=== PATIENT | female | born 1945 ===

== ENCOUNTER 2021-10-12 17:16 | Inpatient (IN) | payer MEDICARE ==
[2021-10-12] MEDS ORDERED: Sodium Chloride 0.9% 1,000 ML ONE (18:12)
[2021-10-12 18:17] LABS: #Basophils 0.1 thou/uL (0.0-0.2); #Lymphocytes 0.2 thou/uL (1.20-3.40); #Monocytes 0.4 thou/uL (0.11-0.59); #Neutrophils 3.5 thou/uL (1.40-6.50); %Eosinophils 0.7 % (0.0-10.0); %Lymphocytes 5.2 % (21.0-51.0); %Monocytes 9.9 % (0.0-10.0); %Neutrophils 82.1 % (42.0-75.0); Hemoglobin 13.6 g/dL (12.0-16.0); Mean Corpuscular HGB CONC 31.6 g/dL (32.0-36.0); Mean Corpuscular Hemoglobin 30.6 pg (27.0-31.0); Mean Corpuscular Volume 96.9 fL (78.0-98.0); Mean Platelet Volume 8.3 fL (7.4-10.4); Platelet Count 243 thou/uL (130-400); RBC Distribution Width 12.4 % (11.5-14.5); Red Blood Cell (RBC) Count 4.46 mill/uL (4.20-5.40); White Blood Cell (WBC) Count 4.3 thou/uL (4.8-10.8)
[2021-10-12 18:35] LABS: ALT (SGPT) 26 U/L (8-55); AST (SGOT) 44 U/L (5-34); Albumin 4.1 g/dL (3.4-4.8); Alkaline Phosphatase 84 U/L (40-110); Anion Gap 18 mmol/L (10-20); BUN (Urea Nitrogen) 31 mg/dL (9.8-20.1); Bilirubin, Total 0.5 mg/dL (0.2-1.2); Calc. Creatinine Clearance 0 mL/min (70-130); Calcium 8.6 mg/dL (7.8-10.44); Carbon Dioxide 20 mmol/L (23-31); Chloride 102 mmol/L (98-107); Globulin 2.4 g/dL (2.4-3.5); Glucose 106 mg/dL (83-110); Lipase 17 U/L (8-78); Magnesium 1.6 mg/dL (1.6-2.6); Potassium 3.3 mmol/L (3.5-5.1); Protein, Total 6.5 g/dL (5.8-8.1); Sodium 137 mmol/L (136-145)
[2021-10-12 19:19] LABS: Bilirubin Negative (Negative); Blood, Urine Trace (Negative); Clarity Clear (Clear); Glucose, Urine (Dipstick) Negative (Negative); Ketone, Urine Negative (Negative); Leukocyte Small (Negative); Nitrite Positive (Negative); Protein, Urine (Dipstick) Negative (Neg-Trace); Specific Gravity, Urine 1.025 (1.005-1.030); Urobilinogen 0.2 mg/dL (Less than 2); pH, Urine 5.5 (5.0-9.0)
[2021-10-12 19:20] LABS: RBC/HPF 0-3 HPF (0-3); Squamous Epithelial 0-3 HPF (0-3)
[2021-10-12 19:21] LABS: Bacteria/HPF 3+ HPF (None Seen)
[2021-10-12] MEDS ORDERED: Cefepime 2 GM VIAL ONE (19:52)
[2021-10-12] MEDS ORDERED: Sodium Chloride 0.9% 100 ML ONE (19:52)
[2021-10-12 21:27] LABS: SARS-CoV-2 NAA Rapid Test DETECTED (NotDetected)
[2021-10-12] MEDS ORDERED: Sodium Chloride 0.9% 1,000 ML IV SCH (21:30)
[2021-10-12] MEDS ORDERED: Acetaminophen 325 MG TAB PO PRN (21:30)
[2021-10-12] MEDS: Acetaminophen 500 MG TAB PO PRN (22:01)
[2021-10-12 22:54] VITALS: BMI 22.7
[2021-10-13] MEDS: Cefepime 2 GM in Sodium Chloride 0.9% 100 ML IVPB SCH ×3 (04:05→23:46)
[2021-10-13] MEDS: cloNIDine 0.1 MG TAB PO PRN (04:20)
[2021-10-13 06:23] LABS: Anion Gap 14 mmol/L (10-20); BUN (Urea Nitrogen) 22 mg/dL (9.8-20.1); Calc. Creatinine Clearance 51 mL/min (70-130); Calcium 7.8 mg/dL (7.8-10.44); Carbon Dioxide 19 mmol/L (23-31); Chloride 108 mmol/L (98-107); Glucose 97 mg/dL (83-110); Potassium 3.3 mmol/L (3.5-5.1); Sodium 138 mmol/L (136-145)
[2021-10-13 06:51] LABS: Hemoglobin 12.2 g/dL (12.0-16.0); Mean Corpuscular HGB CONC 31.5 g/dL (32.0-36.0); Mean Corpuscular Hemoglobin 30.4 pg (27.0-31.0); Mean Corpuscular Volume 96.5 fL (78.0-98.0); Mean Platelet Volume 8.3 fL (7.4-10.4); Platelet Count 204 thou/uL (130-400); RBC Distribution Width 12.5 % (11.5-14.5); White Blood Cell (WBC) Count 2.8 thou/uL (4.8-10.8)
[2021-10-13] MEDS ORDERED: Acetaminophen 650 MG Suppository PR PRN (07:00)
[2021-10-13] MEDS ORDERED: Benzonatate 100 MG CAP PO PRN (07:00)
[2021-10-13] MEDS ORDERED: Calcium Carbonate 500 MG ChewTAB PO PRN (07:59)
[2021-10-13] MEDS ORDERED: Bisacodyl 5 MG TAB PO PRN (07:59)
[2021-10-13] MEDS ORDERED: Ondansetron ODT 4 MG TAB SL PRN (07:59)
[2021-10-13] MEDS ORDERED: Senokot S 8.6-50 MG TAB PO PRN (07:59)
[2021-10-13] MEDS ORDERED: Bisacodyl 10 MG SUPP PR PRN (07:59)
[2021-10-13] MEDS ORDERED: Ondansetron PF 4 MG/2 ML Vial IVP PRN (07:59)
[2021-10-13] MEDS ORDERED: Artificial Tear Sol 15 ML BOT EA EYE PRN (08:01)
[2021-10-13] MEDS ORDERED: Cepastat Lozenges 1 LOZ PO PRN (08:01)
[2021-10-13] MEDS: Ascorbic Acid 500 mg Chewable Tablet PO SCH (08:10)
[2021-10-13] MEDS: Zinc Sulfate 220 MG CAP PO SCH (08:11)
[2021-10-13] MEDS: Cholecalciferol (Vitamin D3) 400 UNITS TAB PO SCH (08:11)
[2021-10-13] MEDS: Acetaminophen 500 MG TAB PO PRN (08:12)
[2021-10-13] MEDS: Albuterol 200 PUFF (6.7GM INHALER) INH PRN ×2 (08:14→17:48)
[2021-10-13] MEDS: Enoxaparin Sodium 40 MG/0.4 ML SYRINGE SC SCH (08:16)
[2021-10-13 08:51] LABS: CRP (Inflammatory) 0.77 mg/dL (= or < 0.5)
[2021-10-13] MEDS ORDERED: Potassium Chloride 20 MEQ TAB PO SCH (09:00)
[2021-10-13] MEDS: Famotidine 20 MG TAB PO SCH ×2 (09:36→21:18)
[2021-10-13] MEDS: Famotidine/PF 20 mg/2ml Vial SLOW IVP SCH ×2 (09:37→21:18)
[2021-10-13] MEDS: Sodium Chloride 0.65% Nasal 44 ML BOT EA NARE PRN ×2 (09:38→17:49)
[2021-10-13 09:46] LABS: Prothrombin Time 13.5 sec (12.0-14.7)
[2021-10-13 09:47] LABS: PTT 33.5 sec (22.9-36.1)
[2021-10-13] MEDS ORDERED: NIRMATRELVIR 150 MG/RITONAVIR 100 MG TABLET PO SCH (10:15)
[2021-10-13] MEDS: Guaifenesin DM 100-10/5 ML UDCUP PO PRN (17:48)
[2021-10-13] MEDS: NIRMATRELVIR 150 MG/RITONAVIR 100 MG TABLET PO SCH (21:19)
[2021-10-14 06:26] LABS: Anion Gap 17 mmol/L (10-20); BUN (Urea Nitrogen) 17 mg/dL (9.8-20.1); Calc. Creatinine Clearance 47 mL/min (70-130); Calcium 8.4 mg/dL (7.8-10.44); Carbon Dioxide 18 mmol/L (23-31); Chloride 105 mmol/L (98-107); Glucose 81 mg/dL (83-110); Potassium 3.6 mmol/L (3.5-5.1); Sodium 136 mmol/L (136-145)
[2021-10-14 07:07] LABS: #Lymphocytes 0.7 thou/uL (1.20-3.40); #Monocytes 0.3 thou/uL (0.11-0.59); %Basophils 1.3 % (0.0-1.0); %Eosinophils 6.1 % (0.0-10.0); %Lymphocytes 22.5 % (21.0-51.0); %Monocytes 9.8 % (0.0-10.0); %Neutrophils 66.3 % (42.0-75.0); Hemoglobin 12.4 g/dL (12.0-16.0); Mean Corpuscular HGB CONC 31.4 g/dL (32.0-36.0); Mean Corpuscular Hemoglobin 30.1 pg (27.0-31.0); Mean Corpuscular Volume 95.9 fL (78.0-98.0); Mean Platelet Volume 8.5 fL (7.4-10.4); Platelet Count 188 thou/uL (130-400); RBC Distribution Width 12.3 % (11.5-14.5); Red Blood Cell (RBC) Count 4.12 mill/uL (4.20-5.40); White Blood Cell (WBC) Count 3.1 thou/uL (4.8-10.8)
[2021-10-14] MEDS: Enoxaparin Sodium 40 MG/0.4 ML SYRINGE SC SCH (08:03)
[2021-10-14] MEDS: NIRMATRELVIR 150 MG/RITONAVIR 100 MG TABLET PO SCH ×2 (08:06→21:36)
[2021-10-14] MEDS: Ascorbic Acid 500 mg Chewable Tablet PO SCH (08:07)
[2021-10-14] MEDS: Zinc Sulfate 220 MG CAP PO SCH (08:07)
[2021-10-14] MEDS: Famotidine/PF 20 mg/2ml Vial SLOW IVP SCH ×2 (08:08→21:37)
[2021-10-14] MEDS: Famotidine 20 MG TAB PO SCH ×2 (08:08→21:36)
[2021-10-14] MEDS: Cholecalciferol (Vitamin D3) 400 UNITS TAB PO SCH (08:08)
[2021-10-14] MEDS: Guaifenesin DM 100-10/5 ML UDCUP PO PRN (12:01)
[2021-10-14] MEDS: Cefepime 2 GM in Sodium Chloride 0.9% 100 ML IVPB SCH ×2 (12:02→23:37)
[2021-10-14] MEDS: cloNIDine 0.1 MG TAB PO PRN (21:36)
[2021-10-14] MEDS ORDERED: Loperamide HCl 2 MG CAP PO PRN ×2 (21:49→21:50)
[2021-10-15] MEDS: Enoxaparin Sodium 40 MG/0.4 ML SYRINGE SC SCH (08:15)
[2021-10-15] MEDS: Ascorbic Acid 500 mg Chewable Tablet PO SCH (08:16)
[2021-10-15] MEDS: Famotidine 20 MG TAB PO SCH ×2 (08:16→21:05)
[2021-10-15] MEDS: Lisinopril 10 MG TAB PO SCH (08:17)
[2021-10-15] MEDS: Cholecalciferol (Vitamin D3) 400 UNITS TAB PO SCH (08:17)
[2021-10-15] MEDS: Zinc Sulfate 220 MG CAP PO SCH (08:18)
[2021-10-15] MEDS: NIRMATRELVIR 150 MG/RITONAVIR 100 MG TABLET PO SCH ×2 (08:18→21:06)
[2021-10-15] MEDS: Famotidine/PF 20 mg/2ml Vial SLOW IVP SCH ×2 (08:18→21:06)
[2021-10-15] MEDS: Cefepime 2 GM in Sodium Chloride 0.9% 100 ML IVPB SCH (12:08)
[2021-10-15] MEDS: Nitrofurantoin Monohyd/M-Cryst 100 MG CAP PO SCH (21:05)
[2021-10-16 06:22] LABS: #Lymphocytes 1.2 thou/uL (1.20-3.40); #Monocytes 0.3 thou/uL (0.11-0.59); #Neutrophils 1.7 thou/uL (1.40-6.50); %Eosinophils 0.9 % (0.0-10.0); %Lymphocytes 36.1 % (21.0-51.0); %Monocytes 10.2 % (0.0-10.0); %Neutrophils 51.8 % (42.0-75.0); Hemoglobin 13.6 g/dL (12.0-16.0); Mean Corpuscular HGB CONC 32.1 g/dL (32.0-36.0); Mean Corpuscular Hemoglobin 30.5 pg (27.0-31.0); Mean Platelet Volume 8.9 fL (7.4-10.4); Platelet Count 194 thou/uL (130-400); RBC Distribution Width 12.6 % (11.5-14.5); Red Blood Cell (RBC) Count 4.47 mill/uL (4.20-5.40); White Blood Cell (WBC) Count 3.3 thou/uL (4.8-10.8)
[2021-10-16 06:31] LABS: Anion Gap 17 mmol/L (10-20); BUN (Urea Nitrogen) 25 mg/dL (9.8-20.1); Calc. Creatinine Clearance 34 mL/min (70-130); Calcium 8.4 mg/dL (7.8-10.44); Carbon Dioxide 24 mmol/L (23-31); Chloride 101 mmol/L (98-107); Glucose 79 mg/dL (83-110); Potassium 3.7 mmol/L (3.5-5.1); Sodium 138 mmol/L (136-145)
[2021-10-16] MEDS ORDERED: Famotidine 20 MG TAB PO SCH (09:00)
[2021-10-16] MEDS ORDERED: Famotidine/PF 20 mg/2ml Vial SLOW IVP SCH (09:00)
[2021-10-16] MEDS: Enoxaparin Sodium 40 MG/0.4 ML SYRINGE SC SCH (09:49)
[2021-10-16] MEDS: NIRMATRELVIR 150 MG/RITONAVIR 100 MG TABLET PO SCH (09:49)
[2021-10-16] MEDS: Lisinopril 10 MG TAB PO SCH (09:50)
[2021-10-16] MEDS: Ascorbic Acid 500 mg Chewable Tablet PO SCH (09:50)
[2021-10-16] MEDS: Zinc Sulfate 220 MG CAP PO SCH (09:51)
[2021-10-16] MEDS: Nitrofurantoin Monohyd/M-Cryst 100 MG CAP PO SCH (09:51)
[2021-10-16] MEDS: Cholecalciferol (Vitamin D3) 400 UNITS TAB PO SCH (09:51)
[2021-10-16 13:12] VITALS: BP 117/70; TEMP 98
[2021-10-16] MEDS ORDERED: Cephalexin 500 MG CAP PO SCH (21:00)
== END 2021-10-16 13:50 | disposition home or self-care (01) | DRG 871 ==
LOC: NAV ERS 17:16 → NAV ACUTE 17:17 → UNDOADMOB 19:55 → OBSVTOIN 19:55 → INTOOBSV 19:55 → NAV ACUTE 20:26 → OBSVTOIN 10-14 17:29 → INTOOBSV 10-14 17:29 → UNDOADMIN 10-14 17:29 → NAV ACUTE 10-14 17:56
PROVIDERS: ADMIT Family Medicine; ATTEND Family Medicine
PROC: 8E0ZXY6 Isolation (ICD-10-PCS; principal; 2021-10-12)
PROC: 3E03329 Introduction of Other Anti-infective into Peripheral Vein, Percutaneous Approach (ICD-10-PCS; 2021-10-12)
DX: A41.51 Sepsis due to Escherichia coli [E. coli] (principal); U07.1 COVID-19; N30.00 Acute cystitis without hematuria; A41.89 Other specified sepsis; I10 Essential (primary) hypertension; E87.6 Hypokalemia; R53.81 Other malaise; Z88.0 Allergy status to penicillin; Z79.899 Other long term (current) drug therapy; Z90.710 Acquired absence of both cervix and uterus
CPT/HCPCS: 36415; 36416; 80048; 80053; 81003; 81015; 82550; 83615; 83690; 83735; 84484; 85025; 85610; 85730; 86140; 87040; 87077; 87086; 87149; 87186; 90471; 90732; 93005; 96361; 96365; 96366; 96372; G0009; G0378; J0692; J1650; J3490; J7050; Q0162; U0002